=== PATIENT | female | born 1970 | race Caucasian/White ===

== ENCOUNTER 2018-04-15 10:09 | Outpatient (CLI) | payer BC | END 2018-04-15 10:10 | disposition home or self-care (01) | LOC: BICMAMMO 10:09 | PROVIDERS: ATTEND Family Medicine | DX: N63.0 Unspecified lump in unspecified breast (principal); Z98.890 Other specified postprocedural states; L90.5 Scar conditions and fibrosis of skin; N63.12 Unspecified lump in the right breast, upper inner quadrant | CPT/HCPCS: 77066; G0279 ==

== ENCOUNTER 2020-12-20 15:53 | Outpatient (CLI) | payer BC ==
[2020-12-20 17:00] LABS: Hemoglobin 12.8 g/dL (12.0-15.5); Mean Corpuscular Hemoglobin 31.6 pg (27.0-33.0); Mean Corpuscular Volume 93.1 fl (81.6-98.3); Mean Platelet Volume 11.3 fl (7.4-10.4); Platelet Count 202 10x3/uL (150-450); RBC Distribution Width 12.7 % (11.5-14.5); Red Blood Cell (RBC) Count 4.05 10x6/uL (3.90-5.03); White Blood Cell (WBC) Count 5.6 10x3/uL (3.5-10.5)
[2020-12-20 17:19] LABS: Bilirubin Neg (Negative); Blood, Urine Negative (Negative); Clarity Clear (Clear); Glucose, Urine (Dipstick) Normal (Negative); Ketone, Urine Negative (Negative); Leukocyte 25 (Negative); Nitrite Negative (Negative); Protein, Urine (Dipstick) Negative (Neg-Trace); Specific Gravity, Urine 1.005 (1.002-1.036); Urobilinogen Normal mg/dL (Less than 2); pH, Urine 6.5 (5.0-9.0)
[2020-12-20 17:23] LABS: Anion Gap 12 mmol/L (10-20); BUN (Urea Nitrogen) 15 mg/dL (7.0-18.7); Calc. Creatinine Clearance 0 mL/min (70-130); Calcium 8.8 mg/dL (7.8-10.44); Carbon Dioxide 25 mmol/L (22-29); Chloride 106 mmol/L (98-107); Glucose 87 mg/dL (70-105); Potassium 4.2 mmol/L (3.5-5.1); Sodium 139 mmol/L (136-145)
[2020-12-20 17:28] LABS: RBC/HPF 0-3 HPF (0-3); Squamous Epithelial 0-3 HPF (0-3); WBC/HPF 0-3 HPF (0-3)
[2020-12-20 17:29] LABS: Bacteria/HPF Rare-Few HPF (None Seen)
[2020-12-20 17:44] LABS: PTT 25.2 sec (22.0-33.0); Prothrombin Time 10.6 sec (9.5-12.1)
[2020-12-21 04:04] LABS: SARS-CoV-2 PCR by NAA Not Detected (NotDetected)
== END 2020-12-20 15:54 | disposition home or self-care (01) ==
LOC: LABBT 15:53
PROVIDERS: ATTEND Urology
DX: Z01.818 Encounter for other preprocedural examination (principal); Z20.822 Contact with and (suspected) exposure to COVID-19; N39.3 Stress incontinence (female) (male)
CPT/HCPCS: 80048; 81001; 85027; 85610; 85730; 87086; 87635; 93005; 93010; U0003; U0005

== ENCOUNTER 2020-12-23 06:19 | Day surgery (SDC) | payer BC ==
[2020-12-21 12:52] VITALS: BMI 26.6
[2020-12-23] MEDS ORDERED: Fentanyl 100 MCG/2 ML VIAL ONE (06:29)
[2020-12-23] MEDS ORDERED: Ampicillin 2 GM in Sodium Chloride 0.9% 100 ML IVPB SCH (06:45)
[2020-12-23] MEDS ORDERED: Gentamicin 110 MG in Sodium Chloride 0.9% 100 ML IVPB SCH (06:45)
[2020-12-23] MEDS ORDERED: Bupivacaine 0.25% HCL 30 ML VIAL ONE (06:48)
[2020-12-23] MEDS ORDERED: Iothalamate Meglumine 60% 50 ML VIAL FS ONE (06:48)
[2020-12-23] MEDS ORDERED: Neomycin-Polymyxin 1 ML AMP ONE (06:48)
[2020-12-23] MEDS ORDERED: EPINEPHrine 1 MG/ML AMP ONE (06:48)
[2020-12-23] MEDS ORDERED: Clindamycin 2% Cream 40 gm Tube VAG SCH (07:30)
[2020-12-23] MEDS ORDERED: Dexamethasone 20 MG/5 ML VIAL ONE (07:35)
[2020-12-23] MEDS ORDERED: Glycopyrrolate 0.2 MG/ML 5 ML SYRINGE ONE (07:35)
[2020-12-23] MEDS ORDERED: ePHEDrine 50 MG/ML VIAL ONE (07:35)
[2020-12-23] MEDS ORDERED: Ondansetron PF 4 MG/2 ML Vial ONE (07:35)
[2020-12-23] MEDS ORDERED: Rocuronium Bromide 10 MG/ML (10ML VIAL) ONE (07:35)
[2020-12-23] MEDS ORDERED: Lidocaine 1% PF 5 ML VIAL ONE (07:35)
[2020-12-23] MEDS ORDERED: PROPOFOL 200 MG/20 ML VIAL ONE (07:35)
[2020-12-23] MEDS ORDERED: Ketorolac Tromethamine 30 MG/ML VIAL ONE (07:35)
[2020-12-23] MEDS ORDERED: diphenhydrAMINE 50 MG/ML VIAL ONE (07:35)
[2020-12-23] MEDS ORDERED: Fioricet 325/50/40 mg Tablet PO SCH (10:00)
== END 2020-12-23 14:15 | disposition home or self-care (01) ==
LOC: SDC 06:19
PROVIDERS: ATTEND Urology
PROC: 0TSD0ZZ Reposition Urethra, Open Approach (ICD-10-PCS; principal; 2020-12-23)
DX: N39.3 Stress incontinence (female) (male) (principal); F41.9 Anxiety disorder, unspecified; F32.9 Major depressive disorder, single episode, unspecified; E78.5 Hyperlipidemia, unspecified; E03.9 Hypothyroidism, unspecified; Z79.51 Long term (current) use of inhaled steroids; Z79.899 Other long term (current) drug therapy; Z88.2 Allergy status to sulfonamides; Z88.8 Allergy status to other drugs, medicaments and biological substances
CPT/HCPCS: C1781; J0171; J0290; J1100; J1200; J1580; J1885; J2405; J2704; J3010; J3490; Q9961; S0020